=== PATIENT | male | born 1990 | race African-American/Black ===

== ENCOUNTER 2017-05-22 11:51 | Emergency (ER) | payer SELFPAY ==
[~2017-05-22] VITALS: Ht 182.9 cm; Wt 81.6 kg
--- NOTE | 2017-05-22 12:17 | PHYS DOC ---
Adult General Chief Complaint Chief Complaint: SHOULDER INJURY [facility] HPI Patient is a 27 year old male who presents with acute left shoulder pain at he reports he dislocated his shoulder rolling over in bed and that he has had 30 prior shoulder dislocations. At this time he feels that the shoulders probably in place but is still having pain. Denies arm swelling numbness tingling or pain in the elbow or wrist. Denies shortness of breath. Review of Systems Review of Systems Constitutional: Denies fever or chills [] Eyes: Denies change in visual acuity, redness, or eye pain [] HENT: Denies nasal congestion or sore throat [] Respiratory: Denies cough or shortness of breath [] Cardiovascular: No additional information not addressed in HPI [] GI: Denies abdominal pain, nausea, vomiting, bloody stools or diarrhea [] : Denies dysuria or hematuria [] Musculoskeletal: Denies back pain or joint pain [] Integument: Denies rash or skin lesions [] Neurologic: Denies headache, focal weakness or sensory changes [] Endocrine: Denies polyuria or polydipsia [] Allergies Allergies Allergies Coded Allergies Type Severity Reaction Last Updated Verified No Known Drug Allergies 05/22/17 No Physical Exam Physical Exam Constitutional: Well developed, well nourished, no acute distress, non-toxic appearance. [] HENT: Normocephalic, atraumatic, bilateral external ears normal, oropharynx moist, no oral exudates, nose normal. [] Eyes: PERRLA, EOMI, conjunctiva normal, no discharge. [] Neck: Normal range of motion, no tenderness, supple, no stridor. [] Cardiovascular:Heart rate regular rhythm, no murmur [] Lungs & Thorax: Bilateral breath sounds clear to auscultation [] Abdomen: Bowel sounds normal, soft, no tenderness, no masses, no pulsatile masses. [] Skin: Warm, dry, no erythema, no rash. [] Back: No tenderness, no CVA tenderness. [] Extremities: No tenderness except for mild tenderness to the left anterior chest no obvious deformity for range of motion of shoulder or elbow wrist. Neurovascularly intact in the left wrist and hand, no cyanosis, no clubbing, ROM intact, no edema. [] Neurologic: Alert and oriented X 3, normal motor function, normal sensory function, no focal deficits noted. [] Psychologic: Affect normal, judgement normal, mood normal. [] Current Patient Data Vital Signs Vital Signs Date Time Temp Pulse Resp B/P (MAP) Pulse Ox O2 Delivery O2 Flow Rate FiO2 05/22/17 11:52 98.7 45 18 140/76 (97) 100 Room Air 98.7 EKG EKG [] Radiology/Procedures Radiology/Procedures Left shoulder x-ray: Fracture dislocation my review of imaging my review of report Course & Med Decision Making Course & Med Decision Making Pertinent Labs and Imaging studies reviewed. (See chart for details) [] Dragon Disclaimer Dragon Disclaimer This electronic medical record was generated, in whole or in part, using a voice recognition dictation system. Departure Departure Impression: Primary Impression: Left shoulder pain Additional Impressions: Chronic left shoulder pain Recurrent dislocation, left shoulder Disposition: HOME, SELF-CARE Condition: STABLE Referrals: NON,STAFF (PCP) Patient Instructions: Shoulder Dislocation, [id number], Shoulder Pain, Easy- to-Read Additional Instructions: Follow-up with primary care physician for referral to orthopedic surgery Problem Qualifiers KATIA HARRELL MD May 22, 2017 12:17
--- NOTE | 2017-05-22 12:29 | RAD ---
SHOULDER 2+V LEFT History:pain, prior dislocation Comparison: None Findings:3 views left shoulder are submitted. No acute fracture or dislocation is identified. Impression: 1.No acute abnormality is identified.
[2017-05-22] MEDS ORDERED: NAPR375T3 PO (12:42)
[2017-05-22] MEDS ORDERED: IBUPROFEN 600 MG TABLET. PO ONE (12:45)
[2017-05-22 12:58] VITALS: BP 149/87
== END 2017-05-22 12:59 | disposition home or self-care (01) ==
LOC: ER 11:51
DX: M24.412 Recurrent dislocation, left shoulder (principal); G89.29 Other chronic pain; M25.512 Pain in left shoulder
CPT/HCPCS: 73030; 99284

== ENCOUNTER 2020-11-04 13:02 | Emergency (ER) | payer OTHER ==
[~2020-11-04] VITALS: Ht 180.3 cm; Wt 81.8 kg
[~2020-11-04 13:02] MED LIST: NAPR-695 PO
[2020-11-04 13:20] VITALS: BP 119/56
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
== END 2020-11-04 15:37 | disposition home or self-care (01) ==
LOC: ER 13:02
DX: S13.4XXA Sprain of ligaments of cervical spine, initial encounter (principal); M25.512 Pain in left shoulder; R51.9 Headache, unspecified; F12.90 Cannabis use, unspecified, uncomplicated; V98.8XXA Other specified transport accidents, initial encounter; Y93.89 Activity, other specified; Y92.413 State road as the place of occurrence of the external cause; Y99.8 Other external cause status
CPT/HCPCS: 70450; 72125; 73030; 99285

== ENCOUNTER 2021-05-17 19:33 | Emergency (ER) | payer SELFPAY | END 2021-05-17 21:54 | disposition left against medical advice (07) | LOC: ER 19:33 | DX: U07.1 COVID-19 (principal); K64.9 Unspecified hemorrhoids; Z53.21 Procedure and treatment not carried out due to patient leaving prior to being seen by health care provider ==

== ENCOUNTER 2021-05-27 00:08 | Emergency (ER) | payer SELFPAY ==
[~2021-05-27] VITALS: Ht 177.8 cm; Wt 84.0 kg
[2021-05-27 03:30] VITALS: BP 119/68
--- NOTE | 2021-05-27 03:58 | PHYS DOC ---
Past Medical History Past Medical History: No Pertinent History Past Surgical History: No Surgical History Smoking Status: Never Smoker Alcohol Use: None Drug Use: Marijuana General Adult EDM: Chief Complaint: OTHER COMPLAINTS HPI: HPI: Patient is a 31 year old male without pertinent past medical history who presents with rectal discomfort that for the past month. Worse with bowel movements. He had one episode where he had small amount of blood on toilet paper, but otherwise no rectal bleeding or blood in stool. No fevers or chills. No abdominal pain. No nausea/vomiting. He has had some constipation, and only has stools every 3 to 4 days. No history of similar pain in the past. Review of Systems: Review of Systems: Constitutional: Denies fever or chills. [] Eyes: Denies change in visual acuity. [] HENT: Denies nasal congestion or sore throat. [] Respiratory: Denies cough or shortness of breath. [] Cardiovascular: Denies chest pain or edema. [] GI: Reports rectal pain. Denies abdominal pain, nausea, vomiting, bloody stools or diarrhea. [] : Denies dysuria. [] Musculoskeletal: Denies back pain or joint pain. [] Integument: Denies rash. [] Neurologic: Denies headache, focal weakness or sensory changes. [] Endocrine: Denies polyuria or polydipsia. [] Lymphatic: Denies swollen glands. [] Psychiatric: Denies depression or anxiety. [] Heart Score: C/O Chest Pain: No Risk Factors: Risk Factors: DM, Current or recent (<one month) smoker, HTN, HLP, family history of CAD, obesity. Risk Scores: Score 0 - 3: 2.5% MACE over next 6 weeks - Discharge Home Score 4 - 6: 20.3% MACE over next 6 weeks - Admit for Clinical Observation Score 7 - 10: 72.7% MACE over next 6 weeks - Early Invasive Strategies Allergies: Allergies: Allergies Coded Allergies Type Severity Reaction Last Updated Verified No Known Drug Allergies 05/22/17 No Physical Exam: PE: Constitutional: Well developed, well nourished, no acute distress, non-toxic appearance. [] HENT: Normocephalic, atraumatic, bilateral external ears normal, oropharynx moist, no oral exudates, nose normal. [] Eyes: PERRLA, EOMI, conjunctiva normal, no discharge. [] Neck: Normal range of motion, no tenderness, supple, no stridor. [] Cardiovascular:Heart rate regular rhythm, no murmur [] Lungs & Thorax: Bilateral breath sounds clear to auscultation [] Abdomen: Bowel sounds normal, soft, no tenderness, no masses, no pulsatile masses. Rectal: No obvious fissures, fistula. No perirectal abscesses noted. Slightly tender on IRIS, but no internal masses present. 2 small external hemorrhoids that are nonthrombosed present. [] Skin: Warm, dry, no erythema, no rash. [] Back: No tenderness, no CVA tenderness. [] Extremities: No tenderness, no cyanosis, no clubbing, ROM intact, no edema. [] Neurologic: Alert and oriented X 3, normal motor function, normal sensory function, no focal deficits noted. [] Psychologic: Affect normal, judgement normal, mood normal. [] Current Patient Data: Vital Signs: Vital Signs Date Time Temp Pulse Resp B/P (MAP) Pulse Ox O2 Delivery O2 Flow Rate FiO2 05/27/21 03:22 119/68 (77) Room Air EKG: EKG: [] Radiology/Procedures: Radiology/Procedures: [] Course & Med Decision Making: Course & Med Decision Making Pertinent Labs and Imaging studies reviewed. (See chart for details) Patient a 31-year-old male with 1 month of rectal discomfort. External exam without an obvious cause of discomfort. No evidence of anal fissure or fistula. He does have a small skin tag/hemorrhoids that are nonthrombosed and nontender externally. No large internal hemorrhoids noted. Overall, unclear what his cause of rectal discomfort is. We will refer to a general surgeon given the duration of his pain. I have advised sitz bath's, stool softeners, and hydrocortisone cream. Dragon Disclaimer: Dragon Disclaimer: This electronic medical record was generated, in whole or in part, using a voice recognition dictation system. Departure Departure Impression: Primary Impression: Rectal pain Disposition: HOME / SELF CARE / HOMELESS Condition: STABLE Referrals: NO PCP (PCP) BULL GRAY MD Schedule appointment. Please call the office tomorrow. Additional Instructions: It is not entirely clear what is causing your rectal discomfort. I am referring you to a general surgeon to have this evaluated further. Please call his office tomorrow morning to schedule appointment. In the meantime please use sitz bath's regularly, especially after bowel movements. You can use hydrocortisone cream, which can be found [id number]. It is important that you eat a high-fiber diet to soften your stools. Please consider using MiraLAX (1 cap mixed into water daily), to have daily softer stools. DARIEN VELASQUEZ MD May 27, 2021 03:58
== END 2021-05-27 04:10 | disposition home or self-care (01) ==
LOC: ER 00:08
DX: K62.89 Other specified diseases of anus and rectum (principal)
CPT/HCPCS: 99282